=== PATIENT | male | born 1995 | race Caucasian/White ===

== ENCOUNTER 2023-09-14 11:05 | Inpatient (IN) | payer SELFPAY ==
[~2023-09-14] VITALS: Ht 182.9 cm; Wt 77.1 kg
[2023-09-14] MEDS ORDERED: IOHEXOL-300 100 ML VIAL IV ONE (11:34)
[2023-09-14] MEDS ORDERED: IV NS 0.9% 250 ML IV ONE (11:34)
[2023-09-14 12:16] LABS: CALCIUM, SERUM 8.2 mg/dL (8.5-10.1); CREATININE 0.8 mg/dL (0.6-1.3)
[2023-09-14 12:22] LABS: ALBUMIN 2.2 g/dL (3.4-5.0); BILIRUBIN,DIRECT 0.2 mg/dL (0.0-0.2); BILIRUBIN,TOTAL 0.6 mg/dL (0.2-1.0); RED BLOOD CELL COUNT(AUTO) 5.48 MIL/uL (4.5-6.0); TOTAL PROTEIN, SERUM 6.6 g/dL (6.4-8.2)
[2023-09-14 12:24] LABS: POTASSIUM 2.7 mmol/L (3.5-5.1)
[2023-09-14 12:30] LABS: BASOPHILS # (AUTO) 0.2 K/uL (0.0-0.2); BASOPHILS % (AUTO) 2.2 % (0.0-2.0); EOSINOPHILS % (AUTO) 0.4 % (0.0-6.0); HEMATOCRIT 31 % (39-51); HEMOGLOBIN 10.3 g/dL (13.5-17.5); LYMPHOCYTES # (AUTO) 1.7 K/uL (0.8-4.8); LYMPHOCYTES % (AUTO) 17.7 % (20.0-44.0); MEAN CORPUSCULAR HEMOGLOBIN 19 PG (26.0-33.0); MEAN CORPUSCULAR HGB CONC 33 g/dl (31.0-36.0); MEAN CORPUSCULAR VOLUME 57 fL (80-96); MONOCYTES # (AUTO) 0.4 K/uL (0.1-1.30); MONOCYTES % (AUTO) 4.1 % (2.0-12.0); NEUTROPHILS # (AUTO) 7.2 K/uL (1.8-8.9); NEUTROPHILS % (AUTO) 75.6 % (43.0-81.0); PLATELET COUNT (AUTO) 469 K/uL (150-450); RED CELL DISTRIBUTION WIDTH 16.3 % (11.5-15.0); WHITE BLOOD COUNT (AUTO) 9.6 K/uL (4.3-11.0)
[2023-09-14] MEDS ORDERED: methylPREDNISolone SOD SUCC 125 MG/2ML VIAL IV ONE (13:00)
[2023-09-14] MEDS ORDERED: methylPREDNISolone SOD SUCC 125 MG/2ML VIAL ONE (13:03)
[2023-09-14] MEDS ORDERED: ASA PO (13:24)
[2023-09-14] MEDS ORDERED: [UNRECOGNIZED DRUG - OTHER] PO (13:24)
[2023-09-14] MEDS ORDERED: [UNRECOGNIZED DRUG - OTHER] PO (13:24)
[2023-09-14] MEDS ORDERED: DICY20TA11 PO (13:24)
[2023-09-14] MEDS ORDERED: DIPH1TAB PO (13:24)
[2023-09-14] MEDS: POTASSIUM CL. PREMIX PERIPHER. 50 ML IV SCH ×7 (13:30→23:07)
[2023-09-14] MEDS ORDERED: POTASSIUM CL. PREMIX PERIPHER. 50 ML ONE ×2 (13:39→15:03)
[2023-09-14] MEDS ORDERED: Z GUARD REMEDY 4 OZ OINT TP PRN (14:00)
[2023-09-14] MEDS ORDERED: MAGNESIUM HYDROXIDE 30 ML UDC PO PRN (14:00)
[2023-09-14] MEDS ORDERED: ACETAMINOPHEN 325 MG TABLET PO PRN (14:00)
[2023-09-14] MEDS ORDERED: MAG HYDROX/AL HYDROX/SIMETH 30 ML UDC PO PRN (14:00)
[2023-09-14] MEDS ORDERED: POTASSIUM CL. PREMIX PERIPHER. 50 ML IV SCH (14:00)
[2023-09-14] MEDS ORDERED: ZOLPIDEM TARTRATE 5 MG TABLET PO PRN (14:00)
[2023-09-14] MEDS ORDERED: ONDANSETRON HCL/PF 4 MG/2 ML VIAL IVP PRN (14:00)
[2023-09-14 14:02] VITALS: O2SAT 99
[2023-09-14 16:00] VITALS: BP 142/96; TEMP 98; O2SAT 97
[2023-09-14] MEDS ORDERED: MORPHINE SULFATE INJ 4 MG/ML DISP.SYRIN IV PRN (16:30)
[2023-09-14] MEDS: MESALAMINE 400 MG CAP PO SCH (17:20)
[2023-09-14] MEDS: PIPERACILLIN /TAZOBACTAM 3.375 G in IV D5W 50 ML IV SCH (19:10)
[2023-09-14 20:00] VITALS: BP 112/74; TEMP 98.1; O2SAT 97
[2023-09-14] MEDS: IV NS 0.9% 1,000 ML IV PRN (20:59)
[2023-09-15] VITALS: BP 111/77; TEMP 97.7; O2SAT 96
[2023-09-15] MEDS: POTASSIUM CL. PREMIX PERIPHER. 50 ML IV SCH (00:04)
[2023-09-15] MEDS: methylPREDNISolone SOD SUCC 40 MG/ML VIAL IV SCH ×3 (01:20→22:01)
[2023-09-15] MEDS: PIPERACILLIN /TAZOBACTAM 3.375 G in IV D5W 50 ML IV SCH ×4 (01:20→17:24)
[2023-09-15 04:00] VITALS: BP 109/69; TEMP 97.7; O2SAT 96
[2023-09-15 06:10] LABS: CALCIUM, SERUM 8.3 mg/dL (8.5-10.1); CREATININE 0.8 mg/dL (0.6-1.3); MAGNESIUM 2.5 mg/dL (1.8-2.4); PHOSPHORUS 3.4 mg/dL (2.5-4.9); POTASSIUM 3.8 mmol/L (3.5-5.1)
[2023-09-15 06:14] LABS: HEMATOCRIT 30 % (39-51); HEMOGLOBIN 9.7 g/dL (13.5-17.5); LYMPHOCYTES # (AUTO) 0.8 K/uL (0.8-4.8); LYMPHOCYTES % (AUTO) 7.4 % (20.0-44.0); MEAN CORPUSCULAR HEMOGLOBIN 19 PG (26.0-33.0); MEAN CORPUSCULAR HGB CONC 33 g/dl (31.0-36.0); MEAN CORPUSCULAR VOLUME 57 fL (80-96); MONOCYTES # (AUTO) 0.6 K/uL (0.1-1.30); MONOCYTES % (AUTO) 6.1 % (2.0-12.0); NEUTROPHILS # (AUTO) 9.1 K/uL (1.8-8.9); NEUTROPHILS % (AUTO) 86.5 % (43.0-81.0); PLATELET COUNT (AUTO) 414 K/uL (150-450); RED BLOOD CELL COUNT(AUTO) 5.19 MIL/uL (4.5-6.0); RED CELL DISTRIBUTION WIDTH 16.5 % (11.5-15.0); WHITE BLOOD COUNT (AUTO) 10.5 K/uL (4.3-11.0)
[2023-09-15 08:00] VITALS: BP 121/83; TEMP 97.9; O2SAT 99
[2023-09-15] MEDS: PANTOPRAZOLE 40 MG VIAL IV SCH ×2 (09:18→13:32)
[2023-09-15] MEDS: MESALAMINE 400 MG CAP PO SCH ×3 (09:18→17:25)
[2023-09-15] MEDS ORDERED: DICYCLOMINE HCL 10 MG CAPSULE PO PRN (11:30)
[2023-09-15 12:00] VITALS: BP 114/80; TEMP 98.2; O2SAT 97
[2023-09-15] MEDS: ACIDOPHILUS/BULGARICUS 1 EACH TAB.CHEW PO SCH ×2 (12:25→17:25)
[2023-09-15] MEDS ORDERED: ACIDOPHILUS/BULGARICUS 1 EACH GRAN.PACK PO SCH (13:00)
[2023-09-15 16:00] VITALS: BP 116/79; TEMP 98; O2SAT 98
[2023-09-15 20:00] VITALS: BP 112/79; TEMP 97.5; O2SAT 98
[2023-09-16] MEDS: PIPERACILLIN /TAZOBACTAM 3.375 G in IV D5W 50 ML IV SCH ×4 (01:30→18:01)
[2023-09-16] MEDS: IV NS 0.9% 1,000 ML IV PRN ×2 (01:49→17:17)
[2023-09-16 06:37] LABS: HEMATOCRIT 29 % (39-51); HEMOGLOBIN 9.3 g/dL (13.5-17.5); LYMPHOCYTES # (AUTO) 0.9 K/uL (0.8-4.8); LYMPHOCYTES % (AUTO) 10.6 % (20.0-44.0); MEAN CORPUSCULAR HEMOGLOBIN 19 PG (26.0-33.0); MEAN CORPUSCULAR HGB CONC 32 g/dl (31.0-36.0); MEAN CORPUSCULAR VOLUME 58 fL (80-96); MONOCYTES # (AUTO) 0.9 K/uL (0.1-1.30); MONOCYTES % (AUTO) 10.4 % (2.0-12.0); NEUTROPHILS # (AUTO) 7.1 K/uL (1.8-8.9); PLATELET COUNT (AUTO) 484 K/uL (150-450); RED BLOOD CELL COUNT(AUTO) 5.01 MIL/uL (4.5-6.0); RED CELL DISTRIBUTION WIDTH 16.5 % (11.5-15.0)
[2023-09-16 06:50] LABS: CALCIUM, SERUM 8.3 mg/dL (8.5-10.1); CREATININE 0.9 mg/dL (0.6-1.3); POTASSIUM 3.8 mmol/L (3.5-5.1)
[2023-09-16 08:00] VITALS: BP 114/75; TEMP 98.3; O2SAT 96
[2023-09-16 08:26] LABS: OCCULT BLOOD STOOL POSITIVE (NEGATIVE)
[2023-09-16] MEDS: PANTOPRAZOLE 40 MG VIAL IV SCH ×2 (09:01→12:59)
[2023-09-16] MEDS: methylPREDNISolone SOD SUCC 40 MG/ML VIAL IV SCH ×2 (09:02→20:46)
[2023-09-16] MEDS: MESALAMINE 400 MG CAP PO SCH ×3 (09:04→17:07)
[2023-09-16] MEDS: ACIDOPHILUS/BULGARICUS 1 EACH TAB.CHEW PO SCH ×3 (09:04→17:08)
[2023-09-16 15:32] VITALS: BP 110/70; TEMP 98.6; O2SAT 99
[2023-09-16 20:00] VITALS: BP 107/75; TEMP 98.1; O2SAT 96
[2023-09-16] MEDS ORDERED: PANTOPRAZOLE 40 MG VIAL IV SCH (21:00)
[2023-09-17] MEDS: PIPERACILLIN /TAZOBACTAM 3.375 G in IV D5W 50 ML IV SCH ×3 (00:03→12:10)
[2023-09-17] MEDS: IV NS 0.9% 1,000 ML IV PRN (05:14)
[2023-09-17 06:51] LABS: BASOPHILS % (AUTO) 0.1 % (0.0-2.0); HEMATOCRIT 31 % (39-51); HEMOGLOBIN 9.8 g/dL (13.5-17.5); LYMPHOCYTES # (AUTO) 1.4 K/uL (0.8-4.8); LYMPHOCYTES % (AUTO) 9.9 % (20.0-44.0); MEAN CORPUSCULAR HEMOGLOBIN 18 PG (26.0-33.0); MEAN CORPUSCULAR HGB CONC 32 g/dl (31.0-36.0); MEAN CORPUSCULAR VOLUME 58 fL (80-96); MONOCYTES % (AUTO) 7.3 % (2.0-12.0); NEUTROPHILS # (AUTO) 11.6 K/uL (1.8-8.9); NEUTROPHILS % (AUTO) 82.7 % (43.0-81.0); PLATELET COUNT (AUTO) 556 K/uL (150-450); RED BLOOD CELL COUNT(AUTO) 5.33 MIL/uL (4.5-6.0); RED CELL DISTRIBUTION WIDTH 16.7 % (11.5-15.0)
[2023-09-17 07:43] LABS: CALCIUM, SERUM 8.2 mg/dL (8.5-10.1); CREATININE 0.9 mg/dL (0.6-1.3); POTASSIUM 4.3 mmol/L (3.5-5.1)
[2023-09-17 08:40] VITALS: BP 121/91; TEMP 98.1; O2SAT 98
[2023-09-17] MEDS ORDERED: PANTOPRAZOLE 40 MG/PACK PACK PO SCH (09:00)
[2023-09-17] MEDS: methylPREDNISolone SOD SUCC 40 MG/ML VIAL IV SCH (09:15)
[2023-09-17] MEDS: ACIDOPHILUS/BULGARICUS 1 EACH TAB.CHEW PO SCH ×2 (09:16→12:13)
[2023-09-17] MEDS: MESALAMINE 400 MG CAP PO SCH ×2 (09:16→12:13)
[2023-09-17] MEDS ORDERED: ACID1TAB12 PO (11:39)
[2023-09-17] MEDS ORDERED: MESA400C3 PO (11:39)
[2023-09-17] MEDS ORDERED: AMOX-430 PO (11:39)
[2023-09-17] MEDS ORDERED: VANC125C11 PO (11:39)
[2023-09-17] MEDS ORDERED: PANT40TA2 PO (11:39)
[2023-09-17] MEDS ORDERED: PRED20TA PO (11:39)
== END 2023-09-17 15:30 | disposition home or self-care (01) | DRG 386 ==
LOC: ER 11:08 → MED 16:12 → TELE 18:56 → MED 09-15 22:36
PROVIDERS: ADMIT Nurse Practitioner Acute Care; ATTEND Nurse Practitioner Acute Care
DX: K51.011 Ulcerative (chronic) pancolitis with rectal bleeding (principal); E87.1 Hypo-osmolality and hyponatremia; D64.9 Anemia, unspecified; E87.6 Hypokalemia
CPT/HCPCS: 36415; 80048-TC; 80076-TC; 82272-TC; 83690-TC; 83735-TC; 84100-TC; 85025-TC; A4223; C9113; G0378; J2543; J2920; J2930; J3480; J7030; J7040; J7050; J7060; Q9967